=== PATIENT | male | born 1990 | race Caucasian/White ===

== ENCOUNTER 2018-09-07 00:34 | Outpatient (CLI) | payer OTHER, SELFPAY ==
--- NOTE | 2018-09-07 16:33 | DI.RAD_ITS ---
SYMPTOMS/DIAGNOSIS: PAIN IN THORACIC SPINE, M54.6 THORACIC SPINE: AP and lateral views. The bones are intact and normally aligned. Disc spaces are well maintained. The paraspinal lines are unremarkable. IMPRESSION: Negative examination.
--- NOTE | 2018-09-07 17:04 | DI.VRAD_ITS ---
EXAM: XR Thoracic Spine, 3 Views EXAM DATE/TIME: 09/07/2018 4:34 PM CLINICAL HISTORY: 28 years old, male; Pain in thoracic spine; Without myelpathy or radiculopathy TECHNIQUE: Imaging protocol: XR of the thoracic spine, 3 views. COMPARISON: No relevant prior studies available. FINDINGS: Vertebrae: Alignment is unremarkable. Bone mineralization is within normal limits. There is no evidence of an acute fracture or dislocation. There is no acute or destructive bony abnormality. Lungs: Visualized lungs are clear Soft tissues: Soft tissues are unremarkable IMPRESSION: No acute findings Dictated and Authenticated by: Yaquelin Castro MD. Ordering:PAU Lopez MD
== END 2018-09-07 00:54 ==
PROVIDERS: PCP Family Medicine; Visit Provider Family Medicine
DX: M54.6 Pain in thoracic spine (principal)
CPT/HCPCS: 72072

== ENCOUNTER 2018-12-10 14:02 | Outpatient (CLI) | payer OTHER, SELFPAY ==
--- NOTE | 2018-12-10 13:58 | DI.RAD_ITS ---
SYMPTOM/DIAGNOSIS: SPRAIN, S63.476A, INJURY RIGHT LITTLE FINGER: No fracture or dislocation is seen. IMPRESSION: Negative right little finger.
== END 2018-12-10 14:22 ==
PROVIDERS: PCP Family Medicine; Visit Provider Family Medicine
DX: S63.636A Sprain of interphalangeal joint of right little finger, initial encounter (principal)
CPT/HCPCS: 73140

== ENCOUNTER 2019-12-27 04:19 | Outpatient (CLI) | payer OTHER, SELFPAY ==
--- NOTE | 2019-12-27 14:03 | DI.RAD_ITS ---
EXAM: XR SHOULDER RT COMPLETE 2+V CLINICAL HISTORY: PAIN RT SHOULDER M25.511. TECHNIQUE: 2D digital imaging was performed. COMPARISON: No exams were available for comparison FINDINGS: BONES: No acute fracture is present. No bony destructive lesion is seen. JOINTS: No dislocation present. There is minimal spurring at the AC joint and glenoid. SOFT TISSUE: Normal. IMPRESSION: Minimal degenerative changes. DATA REPOSITORY: RADIATION DOSE DELIVERED:
== END 2019-12-27 04:39 ==
PROVIDERS: PCP Family Medicine; Visit Provider Family Medicine
DX: M19.011 Primary osteoarthritis, right shoulder (principal)
CPT/HCPCS: 73030